=== PATIENT | female | born 1980 | race Caucasian/White ===

== ENCOUNTER 2019-08-08 14:58 | Emergency (ER) | payer OTHER ==
[2019-08-08 15:37] LABS: BASOPHILS # (AUTO) 0.1 10^3/uL (0.0-0.1); BASOPHILS % (AUTO) 0.6 %; EOSINOPHILS # (AUTO) 0.2 10^3/uL (0.0-0.7); EOSINOPHILS % (AUTO) 1.8 %; HGB - HEMOGLOBIN 16.4 g/dL (12.0-16.0); LYMPHOCYTES # (AUTO) 1.8 10^3/uL (1.5-3.5); LYMPHOCYTES % (AUTO) 19.6 %; MEAN CORPUSCULAR HEMOGLOBIN 31.1 pg (27.0-31.0); MEAN CORPUSCULAR VOLUME 91.3 fL (81.0-99.0); MEAN PLATELET VOLUME 10.6 fL (7.9-10.8); MONOCYTES # (AUTO) 0.5 10^3/uL (0.0-1.0); NEUTROPHILS # (AUTO) 6.4 10^3/uL (1.5-6.6); NEUTROPHILS % (AUTO) 71.7 %; PLT - PLATELET COUNT 250 10^3/uL (130-450); RED BLOOD COUNT 5.28 10^6/uL (4.20-5.40); RED CELL DISTRIBUTION WIDTH 13.2 % (12.0-15.0)
[2019-08-08 15:49] LABS: ALBUMIN 4.7 g/dL (3.2-5.5); ALBUMIN/GLOBULIN RATIO 1.2 (1.0-2.2); BILIRUBIN,TOTAL 0.5 mg/dL (0.2-1.0); CALCIUM 9.8 mg/dL (8.5-10.3); CREATININE 0.8 mg/dL (0.4-1.0); MAGNESIUM 2.2 mg/dL (1.7-2.8); TOTAL PROTEIN 8.6 g/dL (6.7-8.2)
[2019-08-08 16:00] LABS: MUDS CUTOFF CONCENTRATIONS CUTOFF CONC BELOW:
[2019-08-08 16:02] LABS: BILIRUBIN,URINE NEGATIVE (NEGATIVE); GLUCOSE, URINE (UA) NEGATIVE (NEGATIVE); KETONES,URINE (UA) NEGATIVE (NEGATIVE); LEUKOCYTE ESTERASE, URINE NEGATIVE (NEGATIVE); NITRITE,URINE NEGATIVE (NEGATIVE); OCCULT BLOOD,URINE NEGATIVE (NEGATIVE); PROTEIN,URINE NEGATIVE (NEGATIVE); UROBILINOGEN,URINE 0.2 (NORMAL) E.U./dL (NORMAL)
[2019-08-08 16:03] LABS: CLARITY,URINE CLEAR (CLEAR)
[2019-08-08 16:14] LABS: AMPHETAMINE SCREEN,URINE NEGATIVE (NEGATIVE); BENZODIAZEPINES SCREEN, URINE NEGATIVE (NEGATIVE); COCAINE SCREEN URINE NEGATIVE (NEGATIVE); METHADONE SCREEN, URINE NEGATIVE (NEGATIVE); METHAMPHETAMINES SCREEN, URINE NEGATIVE (NEGATIVE); OPIATE SCREEN, URINE NEGATIVE (NEGATIVE); OXYCODONE SCREEN, URINE NEGATIVE (NEGATIVE); PROPOXYPHENE SCREEN, URINE NEGATIVE (NEGATIVE); TRICYCLIC ANTIDEPRESSANT,URINE NEGATIVE (NEGATIVE)
[2019-08-08] MEDS ORDERED: PROPRANOLOL 10 MG TABLET PO STA (16:24)
--- NOTE | 2019-08-08 16:24 | ED Physician Documentation ---
History of Present Illness - Stated complaint Stated Complaint: PALPITATIONS,PX IN LT EYE - Chief complaint Chief Complaint: General - History obtained from History obtained from: Patient - History of Present Illness Timing: Other (This is a young woman with history of palpitations. Had a work- up last year in [place], an echo and a Holter and was diagnosed with "early heartbeats." Today she was at rest at about 1130 and it suddenly became worse with much more palpitations and a significant pain in the left periorbital region which has since defervesced but not completely gone away and is now just a pressure. She also briefly had blurry vision and confusion with this. She is been short of breath but that is not new. She denies any extra stimulant use today, just her usual 1 cup of coffee.) Review of Systems Constitutional: reports: Fatigue. denies: Fever, Chills Cardiac: reports: Palpitations. denies: Chest pain / pressure, Pedal edema, Calf pain Respiratory: denies: Cough GI: denies: Abdominal Pain PD PAST MEDICAL HISTORY - Present Medications Home Medications: Ambulatory Orders Medication Instructions Recorded Confirmed Propranolol HCl 10 mg PO TID #90 tablet 08/08/19 PD ED PE NORMAL - Vitals Vital signs reviewed: Yes - General General: Alert and oriented X 3, Other (Frequent PVCs on the monitor correlate to her symptoms.) - HEENT HEENT: PERRL, EOMI - Neck Neck: Supple, no meningeal sign, No bony TTP - Cardiac Cardiac: RRR (With frequent extrasystoles) - Respiratory Respiratory: No respiratory distress, Clear bilaterally - Abdomen Abdomen: Non tender - Extremities Extremities: No edema, No calf tenderness / cord - Neuro Neuro: Alert and oriented X 3, Normal speech Results - Vitals Vitals: Vital Signs - 24 hr 08/08/19 08/08/19 08/08/19 15:08 16:05 16:43 Temperature 36.8 C Heart Rate 86 92 80 Respiratory 18 18 18 Rate Blood Pressure 123/88 H 105/88 H 110/68 O2 Saturation 99 97 100 08/08/19 18:01 Temperature Heart Rate 80 Respiratory 18 Rate Blood Pressure 128/73 O2 Saturation 100 Oxygen O2 Source Room air - EKG (time done) 1517 Rate: Rate (enter#) (89) Rhythm: NSR (with pvc) Rubicon: Normal Intervals: Normal MT QRS: Normal Ischemia: Normal ST segments Computer interpretation: Agree with computer - Labs Labs: Laboratory Tests 08/08/19 08/08/19 08/08/19 15:32 15:32 15:32 WBC 9.0 RBC 5.28 Hgb 16.4 H Hct 48.2 H MCV 91.3 MCH 31.1 H MCHC 34.0 RDW 13.2 Plt Count 250 MPV 10.6 Neut # (Auto) 6.4 Lymph # (Auto) 1.8 Aurora # (Auto) 0.5 Eos # (Auto) 0.2 Baso # (Auto) 0.1 Absolute Nucleated RBC 0.00 Nucleated RBC % 0.0 Sodium 138 Potassium 3.7 Chloride 101 Carbon Dioxide 26 Anion Gap 11.0 BUN 14 Creatinine 0.8 Estimated GFR (MDRD) 81 L Glucose 101 H Calcium 9.8 Magnesium 2.2 Total Bilirubin 0.5 AST 17 ALT 20 Alkaline Phosphatase 47 Total Protein 8.6 H Albumin 4.7 Globulin 3.9 Albumin/Globulin Ratio 1.2 Lipase 31 TSH 2.14 Urine Color Urine Clarity Urine pH Ur Specific Aladdin Urine Protein Urine Glucose (UA) Urine Ketones Urine Occult Blood Urine Nitrite Urine Bilirubin Urine Urobilinogen Ur Leukocyte Esterase Ur Microscopic Review Urine Culture Comments Urine Opiates Screen Ur Oxycodone Screen Urine Methadone Screen Ur Propoxyphene Screen Ur Barbiturates Screen Ur Tricyclics Screen Ur Phencyclidine Scrn Ur Amphetamine Screen U Methamphetamines Scrn U Benzodiazepines Scrn Urine Cocaine Screen U Cannabinoids Screen 08/08/19 15:55 WBC RBC Hgb Hct MCV MCH MCHC RDW Plt Count MPV Neut # (Auto) Lymph # (Auto) Aurora # (Auto) Eos # (Auto) Baso # (Auto) Absolute Nucleated RBC Nucleated RBC % Sodium Potassium Chloride Carbon Dioxide Anion Gap BUN Creatinine Estimated GFR (MDRD) Glucose Calcium Magnesium Total Bilirubin AST ALT Alkaline Phosphatase Total Protein Albumin Globulin Albumin/Globulin Ratio Lipase TSH Urine Color YELLOW Urine Clarity CLEAR Urine pH 7.0 Ur Specific Aladdin <=1.005 Urine Protein NEGATIVE Urine Glucose (UA) NEGATIVE Urine Ketones NEGATIVE Urine Occult Blood NEGATIVE Urine Nitrite NEGATIVE Urine Bilirubin NEGATIVE Urine Urobilinogen 0.2 (NORMAL) Ur Leukocyte Esterase NEGATIVE Ur Microscopic Review NOT INDICATED Urine Culture Comments NOT INDICATED Urine Opiates Screen NEGATIVE Ur Oxycodone Screen NEGATIVE Urine Methadone Screen NEGATIVE Ur Propoxyphene Screen NEGATIVE Ur Barbiturates Screen NEGATIVE Ur Tricyclics Screen NEGATIVE Ur Phencyclidine Scrn NEGATIVE Ur Amphetamine Screen NEGATIVE U Methamphetamines Scrn NEGATIVE U Benzodiazepines Scrn NEGATIVE Urine Cocaine Screen NEGATIVE U Cannabinoids Screen NEGATIVE PD MEDICAL DECISION MAKING - ED course ED course: This young woman with palpitations, noted to have frequent PVCs on both EKG and monitoring which correlate with her symptoms. This sounds like it may be a chronic issue, although the term PVCs was not familiar to her, the diagnosis of "early heartbeats" previously with a cardiac work-up suggest that that was the issue in the past. It sounds like she was offered beta-blockers by the rn transitional but she declined at the time but not would now like to trial it. The retro-orbital pain on the left is concerning and not typical for that diagnosis though and a CT will be done. After the administration of 10 mg of oral propranolol she actually felt much better and would like to continue this medication going forward. Head CT read Interpreted contemporaneously by me was negative. Departure - Departure Disposition: 01 Home, Self Care Clinical Impression: Premature ventricular contractions Headache Qualifiers: Headache type: unspecified Headache chronicity pattern: acute headache Intractability: not intractable Qualified Code(s): R51 - Headache Condition: Good Instructions: ED Palpitations Prescriptions: Propranolol HCl 10 mg PO TID #90 tablet Comments: You were seen today for palpitations, on the monitor these were clearly what are known as premature ventricular contractions. These are not dangerous. The rest of her findings were normal including labs and a head CT for the eye pain on the left. Return for new or worsening symptoms. Follow-up with your doctor, next available appointment. Discharge Date/Time: 08/08/19 18:02
--- NOTE | 2019-08-08 17:51 | CT Report ---
Reason: headaceh Procedure Date: 08/08/2019 Accession Number: [id number] / [id number] Procedure: CT - HEAD WO CPT Code: Final Report FULL RESULT: EXAM: CT HEAD EXAM DATE: 08/08/2019 05:27 PM. CLINICAL HISTORY: Headaceh. COMPARISON: None. TECHNIQUE: Multiaxial CT images were obtained from the foramen magnum to the vertex. Reformats: Sagittal and coronal. IV contrast: None. In accordance with CT protocol optimization, one or more of the following dose reduction techniques were utilized for this exam: automated exposure control, adjustment of mA and/or KV based on patient size, or use of iterative reconstructive technique. FINDINGS: Parenchyma: No intraparenchymal hemorrhage. No evidence of mass, midline shift, or CT findings of infarction. Cervantes-white differentiation is distinct. Extraaxial Spaces: Normal for age. No subdural or epidural collections identified. Ventricles: Normal in size and position. Sinuses and Orbits: Imaged paranasal sinuses, orbits, and mastoids show no significant abnormality. Bones: No evidence of fracture or calvarial defect. Other: None. IMPRESSION: Normal head CT. RADIA
[2019-08-08 18:02] VITALS: BP 128/73
== END 2019-08-08 18:02 | disposition home or self-care (01) ==
LOC: ED 14:58
DX: I49.3 Ventricular premature depolarization (principal); R51 Headache; R41.0 Disorientation, unspecified
CPT/HCPCS: 36415; 70450; 81003; 83690; 83735; 93005; 99284; A9270; 80053; 80306; 81001; 84443; 85025; 87086

== ENCOUNTER 2019-12-22 08:30 | Outpatient (CLI) | payer OTHER | END 2019-12-22 08:31 | disposition home or self-care (01) | LOC: LAB 08:30 | PROVIDERS: ATTEND Nurse Practitioner Family | DX: Z01.812 Encounter for preprocedural laboratory examination (principal); Z11.59 Encounter for screening for other viral diseases | CPT/HCPCS: 81599 ==

== ENCOUNTER 2020-03-13 08:46 | Outpatient (CLI) | payer OTHER ==
--- NOTE | 2020-03-14 16:10 | MRI Report ---
PROCEDURE: Pelvis W/O INDICATIONS: PELVIC PAIN CONTRAST: None given TECHNIQUE: Coronal ultra fast SE, sagittal breath-hold T2 FSE; axial T1 FSE with and without fat saturation thro ugh the pelvis. Optional long- and short-axis uterine nonbreath-hold T2 FSE through the uterus. COMPARISON: None. FINDINGS: Image quality: Excellent. Uterus: Uterus is normal in size. Endometrium is normal in thickness. Junctional zone is normal in thickness at 12 mm or less. Adnexa: Both ovaries are normal in size, without suspicious cystic or solid lesions. Trace left par aovarian fluid. Urinary system: Bladder wall is normal in thickness. Distal ureters are non distended. Urethra jeanine ears normal in morphology. Nodes and vessels: No pelvic or inguinal adenopathy by size criteria. Iliac vessels are normal in s ize. Bowel and peritoneum: No pathologic free pelvic fluid. Inferior colon and small bowel loops are nor mal in caliber. Soft tissues: No inguinal hernias. No findings of pelvic floor incompetence in the absence of provo cation. Bones: Marrow demonstrates normal overall signal. IMPRESSION: 1. Normal MRI of the pelvis. Reviewed by: Judy Acosta MD on 03/14/2020 4:09 PM PDT Approved by: Judy Acosta MD on 03/14/2020 4:09 PM PDT Station ID: [id number]
== END 2020-03-13 08:47 | disposition home or self-care (01) ==
LOC: DI 08:46
PROVIDERS: ATTEND Nurse Practitioner Family
DX: R10.2 Pelvic and perineal pain (principal)
CPT/HCPCS: 72195